=== PATIENT | male | born 1935 | race Hispanic/Latino ===

== ENCOUNTER 2021-09-29 00:30 | Inpatient (IN) | payer OTHER, SELFPAY ==
[2021-09-29 01:32] LABS: #Basophils 0.1 thou/uL (0.0-0.2); #Eosinphils 0.1 thou/uL (0.0-0.7); #Lymphocytes 1.7 thou/uL (1.20-3.40); #Monocytes 0.7 thou/uL (0.11-0.59); #Neutrophils 10.8 thou/uL (1.40-6.50); %Basophils 0.5 % (0.0-1.0); %Eosinophils 0.5 % (0.0-10.0); %Lymphocytes 12.5 % (21.0-51.0); %Monocytes 5.1 % (0.0-10.0); %Neutrophils 81.4 % (42.0-75.0); Mean Corpuscular Hemoglobin 33.8 pg (27.0-31.0); Mean Corpuscular Volume 99.4 fL (78.0-98.0); Mean Platelet Volume 6.3 fL (7.4-10.4); Platelet Count 437 thou/uL (130-400); RBC Distribution Width 11.9 % (11.5-14.5); Red Blood Cell (RBC) Count 2.96 mill/uL (4.70-6.10); White Blood Cell (WBC) Count 13.3 thou/uL (4.8-10.8)
[2021-09-29 01:52] LABS: Acetaminophen Less than 10.0 mcg/mL (10.0-30.0); Alcohol Less than 10 mg/dL (Less than 10); CK (CPK) 44 U/L (30-200); Lipase 90 U/L (8-78); Salicylate Less than 8.0 mg/dL (15.0-30.0)
[2021-09-29 01:55] LABS: ALT (SGPT) 17 U/L (8-55); AST (SGOT) 24 U/L (5-34); Albumin 3.3 g/dL (3.4-4.8); Alkaline Phosphatase 103 U/L (40-110); Anion Gap 18 mmol/L (10-20); BUN (Urea Nitrogen) 21 mg/dL (8.4-25.7); Bilirubin, Total 0.5 mg/dL (0.2-1.2); Calc. Creatinine Clearance 0 mL/min (70-130); Carbon Dioxide 22 mmol/L (23-31); Chloride 97 mmol/L (98-107); Globulin 3.9 g/dL (2.4-3.5); Glucose 363 mg/dL (83-110); Potassium 4.5 mmol/L (3.5-5.1); Protein, Total 7.2 g/dL (5.8-8.1); Sodium 132 mmol/L (136-145)
[2021-09-29 02:13] LABS: INR-International Normal Ratio 1.1; Prothrombin Time 14.7 sec (12.0-14.7)
[2021-09-29 02:14] LABS: PTT 31.2 sec (22.9-36.1)
[2021-09-29] MEDS ORDERED: hydrALAZINE 20 MG/ML VIAL ONE (02:30)
[2021-09-29] MEDS ORDERED: Labetalol HCl 100 MG/20 ML VIAL ONE (03:35)
[2021-09-29] MEDS ORDERED: ceFAZolin (BATCH) 2 GM in Premix Bag 1 BAG IVPB SCH (03:45)
[2021-09-29] MEDS ORDERED: Dextrose 50% Abboject 50 ML SYRINGE SLOW IVP PRN (04:18)
[2021-09-29] MEDS ORDERED: Dextrose 5% in Water 1,000 ML IV PRN (04:18)
[2021-09-29] MEDS ORDERED: hydrALAZINE 20 MG/ML VIAL SLOW IVP PRN ×2 (04:18→12:15)
[2021-09-29] MEDS ORDERED: Promethazine HCl 25 MG/ML VIAL IM PRN (04:18)
[2021-09-29] MEDS ORDERED: Ondansetron PF 4 MG/2 ML Vial IVP PRN (04:18)
[2021-09-29] MEDS ORDERED: Ondansetron ODT 4 MG TAB PO PRN (04:18)
[2021-09-29] MEDS ORDERED: Acetaminophen 325 MG TAB PO PRN (04:18)
[2021-09-29] MEDS: Sodium Chloride 0.9% 1,000 ML IV SCH ×2 (05:14→11:31)
[2021-09-29] MEDS: Morphine 2 MG/ML VIAL SLOW IVP PRN ×4 (05:24→23:04)
[2021-09-29] MEDS ORDERED: Bacitracin Zinc Ointment 30 gm TUBE ONE (06:09)
[2021-09-29] MEDS ORDERED: Lidocaine 0.5%/Epinephrine 1:200,000 50 ml Vial ONE (06:09)
[2021-09-29] MEDS ORDERED: Thrombin 5000 UNITS/5 ML VIAL ONE (06:09)
[2021-09-29] MEDS ORDERED: Neomycin-Polymyxin 1 ML AMP ONE ×3 (06:09→08:59)
[2021-09-29] MEDS ORDERED: Phenylephrine 10 MG/ML VIAL ONE ×2 (06:39→07:13)
[2021-09-29 06:46] LABS: SARS-CoV-2 NAA Rapid Test Not Detected (NotDetected)
[2021-09-29] MEDS ORDERED: Fentanyl 100 MCG/2 ML VIAL ONE (07:11)
[2021-09-29] MEDS: Sodium Chloride 1 GM TAB PO SCH ×3 (08:00→23:13)
[2021-09-29] MEDS ORDERED: Lidocaine 1% PF 5 ML VIAL ONE (08:04)
[2021-09-29] MEDS ORDERED: PROPOFOL 200 MG/20 ML VIAL ONE (08:04)
[2021-09-29] MEDS ORDERED: Glycopyrrolate 0.2 MG/ML 5 ML SYRINGE ONE (08:04)
[2021-09-29] MEDS ORDERED: ePHEDrine 50 MG/ML VIAL ONE (08:04)
[2021-09-29] MEDS ORDERED: PHENYLEPHRINE-NS 100 MCG/ML 10 ML SYRINGE ONE (08:04)
[2021-09-29] MEDS ORDERED: Rocuronium Bromide 10 MG/ML (10ML VIAL) ONE (08:04)
[2021-09-29] MEDS ORDERED: NEOMYCIN-POLYMYXIN-HC EAR SUSP 200 DROP/10 ML BOT ONE (08:58)
[2021-09-29] MEDS ORDERED: Famotidine 20 MG TAB PO SCH (09:00)
[2021-09-29] MEDS: Morphine 4 MG/ML VIAL SLOW IVP PRN (11:19)
[2021-09-29] MEDS: ceFAZolin (BATCH) 2 GM in Premix Bag 1 BAG IVPB SCH ×2 (15:01→22:07)
[2021-09-29] MEDS: HumaLOG 300 UNITS/3 ML VIAL SC PRN (15:26)
[2021-09-29] MEDS ORDERED: hydrALAZINE 20 MG/ML VIAL SLOW IVP SCH (15:30)
[2021-09-29 16:11] LABS: Bilirubin Negative (Negative); Blood, Urine Negative (Negative); Clarity Clear (Clear); Glucose, Urine (Dipstick) Greater than 1000 mg/dL (Negative); Ketone, Urine Negative (Negative); Leukocyte Negative Leu/uL (Negative); Nitrite Negative (Negative); Protein, Urine (Dipstick) 30 mg/dL (Neg-Trace); RBC/HPF 0-3 HPF (0-3); Specific Gravity, Urine 1.019 (1.002-1.036); Squamous Epithelial 0-3 HPF (0-3); Urobilinogen Normal mg/dL (Less than 2)
[2021-09-29 16:13] LABS: Bacteria/HPF 1+ HPF (None Seen)
[2021-09-29 16:17] LABS: Amphetamine Not Detected (NotDetected); Barbiturates Screen Not Detected (NotDetected); Benzodiazepine Screen Not Detected (NotDetected); Cocaine Metabolite Screen Not Detected (NotDetected); Methadone Not Detected (NotDetected); Methamphetamine Detected (NotDetected); Opiate Screen Detected (NotDetected); Oxycodone Screen Not Detected (NotDetected); Phencyclidine (PCP) Not Detected (NotDetected); THC/Cannabinoid Screen Not Detected (NotDetected); Tricyclic Screen Not Detected (NotDetected)
[2021-09-29] MEDS ORDERED: niCARdipine 25 MG in Sodium Chloride 0.9% 250 ML 250 ML IVPB SCH (17:00)
[2021-09-29] MEDS ORDERED: Insulin Glargine 30 UNITS/0.3 ML VIAL SC SCH (21:00)
[2021-09-29] MEDS: hydrALAZINE 20 MG/ML VIAL SLOW IVP PRN (22:53)
[2021-09-30] MEDS: Morphine 2 MG/ML VIAL SLOW IVP PRN ×2 (01:55→06:29)
[2021-09-30 03:33] LABS: #Lymphocytes 1.1 thou/uL (1.20-3.40); #Monocytes 0.6 thou/uL (0.11-0.59); #Neutrophils 11.9 thou/uL (1.40-6.50); %Basophils 0.1 % (0.0-1.0); %Eosinophils 0.2 % (0.0-10.0); %Lymphocytes 7.8 % (21.0-51.0); %Monocytes 4.1 % (0.0-10.0); %Neutrophils 87.8 % (42.0-75.0); Hemoglobin 12.7 g/dL (14.0-18.0); Mean Corpuscular HGB CONC 34.1 g/dL (32.0-36.0); Mean Corpuscular Volume 99.8 fL (78.0-98.0); Mean Platelet Volume 6.5 fL (7.4-10.4); Platelet Count 328 thou/uL (130-400); RBC Distribution Width 12.3 % (11.5-14.5); Red Blood Cell (RBC) Count 3.74 mill/uL (4.70-6.10); White Blood Cell (WBC) Count 13.5 thou/uL (4.8-10.8)
[2021-09-30] MEDS: Morphine 4 MG/ML VIAL SLOW IVP PRN ×3 (03:36→17:45)
[2021-09-30 03:51] LABS: Phosphorus 2.4 mg/dL (2.3-4.7)
[2021-09-30 03:53] LABS: Anion Gap 12 mmol/L (10-20); BUN (Urea Nitrogen) 16 mg/dL (8.4-25.7); Calc. Creatinine Clearance 47 mL/min (70-130); Calcium 8.8 mg/dL (7.8-10.44); Carbon Dioxide 20 mmol/L (23-31); Chloride 110 mmol/L (98-107); Glucose 156 mg/dL (83-110); Potassium 4.1 mmol/L (3.5-5.1); Sodium 138 mmol/L (136-145)
[2021-09-30 05:21] LABS: Magnesium 1.4 mg/dL (1.6-2.6)
[2021-09-30] MEDS: ceFAZolin (BATCH) 2 GM in Premix Bag 1 BAG IVPB SCH ×3 (06:29→21:26)
[2021-09-30] MEDS: hydrALAZINE 20 MG/ML VIAL SLOW IVP PRN (06:39)
[2021-09-30] MEDS ORDERED: Magnesium Sulfate In Water 4 GM in Premix Bag 1 BAG IVPB SCH (07:30)
[2021-09-30] MEDS: Sodium Chloride 1 GM TAB PO SCH ×3 (08:00→22:13)
[2021-09-30] MEDS ORDERED: Insulin Glargine 30 UNITS/0.3 ML VIAL SC SCH (09:00)
[2021-09-30] MEDS: Famotidine 20 MG TAB PO SCH (09:00)
[2021-09-30] MEDS: Sodium Chloride 0.9% 1,000 ML IV SCH (13:00)
[2021-09-30] MEDS ORDERED: Dextrose 50% Abboject 50 ML SYRINGE SLOW IVP PRN (15:02)
[2021-09-30] MEDS: Lorazepam 2 MG/ML VIAL SLOW IVP PRN (19:09)
[2021-10-01] MEDS: Labetalol HCl 100 MG/20 ML VIAL SLOW IVP PRN ×4 (00:12→23:03)
[2021-10-01] MEDS: hydrALAZINE 20 MG/ML VIAL SLOW IVP PRN ×2 (02:09→06:03)
[2021-10-01 03:27] LABS: #Monocytes 0.6 thou/uL (0.11-0.59); #Neutrophils 10.3 thou/uL (1.40-6.50); %Basophils 0.2 % (0.0-1.0); %Eosinophils 0.3 % (0.0-10.0); %Lymphocytes 8.3 % (21.0-51.0); %Monocytes 4.9 % (0.0-10.0); %Neutrophils 86.4 % (42.0-75.0); Hemoglobin 11.9 g/dL (14.0-18.0); Mean Corpuscular HGB CONC 33.8 g/dL (32.0-36.0); Mean Corpuscular Hemoglobin 34.1 pg (27.0-31.0); Mean Platelet Volume 6.2 fL (7.4-10.4); Platelet Count 262 thou/uL (130-400); RBC Distribution Width 12.2 % (11.5-14.5); Red Blood Cell (RBC) Count 3.49 mill/uL (4.70-6.10); White Blood Cell (WBC) Count 11.9 thou/uL (4.8-10.8)
[2021-10-01 03:47] LABS: Anion Gap 11 mmol/L (10-20); BUN (Urea Nitrogen) 17 mg/dL (8.4-25.7); Calc. Creatinine Clearance 53 mL/min (70-130); Calcium 8.5 mg/dL (7.8-10.44); Carbon Dioxide 24 mmol/L (23-31); Chloride 108 mmol/L (98-107); Glucose 145 mg/dL (83-110); Potassium 3.7 mmol/L (3.5-5.1); Sodium 139 mmol/L (136-145)
[2021-10-01] MEDS: ceFAZolin (BATCH) 2 GM in Premix Bag 1 BAG IVPB SCH ×3 (05:34→22:37)
[2021-10-01] MEDS: Sodium Chloride 1 GM TAB PO SCH ×2 (07:08→14:59)
[2021-10-01] MEDS: Sodium Chloride 0.9% 1,000 ML IV SCH (08:39)
[2021-10-01] MEDS: Famotidine 20 MG TAB PO SCH (08:39)
[2021-10-01] MEDS: HumaLOG 300 UNITS/3 ML VIAL SC PRN ×2 (08:40→20:29)
[2021-10-01] MEDS ORDERED: Potassium Phosphate 30 MMOL in Sodium Chloride 0.9% 250 ML 250 ML IVPB SCH (11:45)
[2021-10-01] MEDS: Lorazepam 2 MG/ML VIAL SLOW IVP PRN (14:45)
[2021-10-01] MEDS: Losartan 25 MG TAB PO SCH (20:20)
[2021-10-02] MEDS: Sodium Chloride 1 GM TAB PO SCH ×2 (00:13→08:42)
[2021-10-02] MEDS: HumaLOG 300 UNITS/3 ML VIAL SC PRN ×5 (00:14→20:34)
[2021-10-02] MEDS: Lorazepam 2 MG/ML VIAL SLOW IVP PRN (03:13)
[2021-10-02 03:35] LABS: #Lymphocytes 0.7 thou/uL (1.20-3.40); #Monocytes 0.7 thou/uL (0.11-0.59); #Neutrophils 9.6 thou/uL (1.40-6.50); %Eosinophils 0.3 % (0.0-10.0); %Lymphocytes 6.2 % (21.0-51.0); %Monocytes 6.2 % (0.0-10.0); %Neutrophils 87.3 % (42.0-75.0); Hemoglobin 11.6 g/dL (14.0-18.0); Mean Corpuscular HGB CONC 33.2 g/dL (32.0-36.0); Mean Corpuscular Hemoglobin 33.6 pg (27.0-31.0); Mean Platelet Volume 6.5 fL (7.4-10.4); Platelet Count 249 thou/uL (130-400); RBC Distribution Width 12.2 % (11.5-14.5); Red Blood Cell (RBC) Count 3.45 mill/uL (4.70-6.10)
[2021-10-02 03:57] LABS: Anion Gap 13 mmol/L (10-20); BUN (Urea Nitrogen) 21 mg/dL (8.4-25.7); Calc. Creatinine Clearance 52 mL/min (70-130); Calcium 8.4 mg/dL (7.8-10.44); Carbon Dioxide 23 mmol/L (23-31); Chloride 108 mmol/L (98-107); Glucose 176 mg/dL (83-110); Magnesium 1.7 mg/dL (1.6-2.6); Phosphorus 2.5 mg/dL (2.3-4.7); Potassium 3.6 mmol/L (3.5-5.1); Sodium 140 mmol/L (136-145)
[2021-10-02] MEDS: Labetalol HCl 100 MG/20 ML VIAL SLOW IVP PRN ×4 (05:03→23:07)
[2021-10-02] MEDS: ceFAZolin (BATCH) 2 GM in Premix Bag 1 BAG IVPB SCH ×2 (05:03→14:09)
[2021-10-02] MEDS ORDERED: Acetaminophen/Codeine 30-300mg Tablet PO PRN (07:15)
[2021-10-02] MEDS ORDERED: Acetaminophen 325 MG TAB PO SCH (07:15)
[2021-10-02] MEDS ORDERED: Potassium Phosphate 15 MMOL in Sodium Chloride 0.9% 250 ML 250 ML IVPB SCH (07:15)
[2021-10-02] MEDS ORDERED: Morphine 4 MG/ML VIAL SLOW IVP PRN ×2 (07:15→07:16)
[2021-10-02] MEDS ORDERED: Magnesium 2 GM/50 ML(in water) 2 GM in Premix Bag 1 BAG IVPB SCH (07:15)
[2021-10-02] MEDS: Famotidine 20 MG TAB PO SCH (08:42)
[2021-10-02] MEDS: Polyethylene Glycol 3350 17 GM Packet PER TUBE SCH (08:42)
[2021-10-02] MEDS ORDERED: Bisacodyl 10 MG SUPP PR SCH (09:15)
[2021-10-02] MEDS: Acetaminophen 325 MG TAB PO SCH ×3 (11:43→23:07)
[2021-10-02] MEDS: Morphine 2 MG/ML VIAL SLOW IVP PRN (19:39)
[2021-10-02] MEDS: Losartan 25 MG TAB PO SCH (20:16)
[2021-10-02] MEDS: Tamsulosin HCl 0.4 MG CAP PO SCH (20:16)
[2021-10-03] MEDS: HumaLOG 300 UNITS/3 ML VIAL SC PRN ×3 (00:09→22:33)
[2021-10-03] MEDS: Morphine 2 MG/ML VIAL SLOW IVP PRN ×3 (02:05→08:51)
[2021-10-03] MEDS: Labetalol HCl 100 MG/20 ML VIAL SLOW IVP PRN ×2 (03:04→07:05)
[2021-10-03 03:37] LABS: #Lymphocytes 1.3 thou/uL (1.20-3.40); #Monocytes 0.7 thou/uL (0.11-0.59); #Neutrophils 9.7 thou/uL (1.40-6.50); %Basophils 0.1 % (0.0-1.0); %Eosinophils 0.4 % (0.0-10.0); %Lymphocytes 10.7 % (21.0-51.0); %Monocytes 5.8 % (0.0-10.0); Hemoglobin 11.2 g/dL (14.0-18.0); Mean Corpuscular HGB CONC 33.4 g/dL (32.0-36.0); Mean Corpuscular Hemoglobin 33.9 pg (27.0-31.0); Mean Platelet Volume 6.8 fL (7.4-10.4); Platelet Count 264 thou/uL (130-400); RBC Distribution Width 12.3 % (11.5-14.5); White Blood Cell (WBC) Count 11.7 thou/uL (4.8-10.8)
[2021-10-03 03:52] LABS: Anion Gap 13 mmol/L (10-20); BUN (Urea Nitrogen) 30 mg/dL (8.4-25.7); Calc. Creatinine Clearance 53 mL/min (70-130); Calcium 8.7 mg/dL (7.8-10.44); Carbon Dioxide 26 mmol/L (23-31); Chloride 104 mmol/L (98-107); Glucose 143 mg/dL (83-110); Phosphorus 1.8 mg/dL (2.3-4.7); Potassium 3.5 mmol/L (3.5-5.1); Sodium 139 mmol/L (136-145)
[2021-10-03] MEDS ORDERED: Potassium Phosphate 30 MMOL in Sodium Chloride 0.9% 250 ML 250 ML IVPB SCH (05:00)
[2021-10-03] MEDS: Acetaminophen 325 MG TAB PO SCH ×3 (05:07→18:44)
[2021-10-03] MEDS: Polyethylene Glycol 3350 17 GM Packet PER TUBE SCH ×2 (12:33→15:55)
[2021-10-03] MEDS: Famotidine 20 MG TAB PO SCH ×2 (12:34→15:54)
[2021-10-03] MEDS: hydrALAZINE 20 MG/ML VIAL SLOW IVP PRN (15:55)
[2021-10-03] MEDS: Losartan 25 MG TAB PO SCH (20:41)
[2021-10-03] MEDS: Tamsulosin HCl 0.4 MG CAP PO SCH (20:41)
[2021-10-04] MEDS: Acetaminophen 325 MG TAB PO SCH ×5 (00:15→23:13)
[2021-10-04 04:17] LABS: Anion Gap 13 mmol/L (10-20); BUN (Urea Nitrogen) 27 mg/dL (8.4-25.7); Calc. Creatinine Clearance 50 mL/min (70-130); Calcium 8.5 mg/dL (7.8-10.44); Carbon Dioxide 25 mmol/L (23-31); Chloride 104 mmol/L (98-107); Glucose 178 mg/dL (83-110); Magnesium 1.9 mg/dL (1.6-2.6); Potassium 4.3 mmol/L (3.5-5.1); Sodium 138 mmol/L (136-145)
[2021-10-04] MEDS ORDERED: PHOS-NAK 1 PKT PACK PO SCH (07:15)
[2021-10-04] MEDS: Famotidine 20 MG TAB PO SCH (10:26)
[2021-10-04] MEDS: Senokot S 8.6-50 MG TAB PO SCH ×2 (10:29→22:46)
[2021-10-04] MEDS: Polyethylene Glycol 3350 17 GM Packet PER TUBE SCH (10:31)
[2021-10-04] MEDS: HumaLOG 300 UNITS/3 ML VIAL SC PRN (12:13)
[2021-10-04] MEDS: hydrALAZINE 20 MG/ML VIAL SLOW IVP PRN (22:45)
[2021-10-04] MEDS: Losartan 25 MG TAB PO SCH (22:46)
[2021-10-04] MEDS: Tamsulosin HCl 0.4 MG CAP PO SCH (22:46)
[2021-10-05] MEDS: Acetaminophen 325 MG TAB PO SCH ×4 (05:22→23:52)
[2021-10-05] MEDS: Senokot S 8.6-50 MG TAB PO SCH ×2 (09:31→19:56)
[2021-10-05] MEDS: Polyethylene Glycol 3350 17 GM Packet PER TUBE SCH (09:32)
[2021-10-05] MEDS: Famotidine 20 MG TAB PO SCH (09:32)
[2021-10-05 09:59] VITALS: BMI 18.1
[2021-10-05] MEDS: HumaLOG 300 UNITS/3 ML VIAL SC PRN ×2 (11:16→20:06)
[2021-10-05] MEDS: Losartan 25 MG TAB PO SCH (19:56)
[2021-10-05] MEDS: Tamsulosin HCl 0.4 MG CAP PO SCH (19:56)
[2021-10-06] MEDS: Acetaminophen 325 MG TAB PO SCH ×5 (05:44→23:53)
[2021-10-06] MEDS: HumaLOG 300 UNITS/3 ML VIAL SC PRN ×2 (05:45→11:08)
[2021-10-06] MEDS: Senokot S 8.6-50 MG TAB PO SCH ×2 (09:07→19:49)
[2021-10-06] MEDS: Famotidine 20 MG TAB PO SCH (09:07)
[2021-10-06] MEDS: Polyethylene Glycol 3350 17 GM Packet PER TUBE SCH (09:08)
[2021-10-06] MEDS ORDERED: Labetalol HCl 100 MG/20 ML VIAL ONE (11:07)
[2021-10-06] MEDS ORDERED: Bisacodyl 10 MG SUPP PR SCH (11:45)
[2021-10-06 16:03] LABS: SARS-CoV-2 PCR by NAA Not Detected (NotDetected)
[2021-10-06] MEDS: Losartan 25 MG TAB PO SCH (19:49)
[2021-10-06] MEDS: Tamsulosin HCl 0.4 MG CAP PO SCH (19:50)
[2021-10-06] MEDS: hydrALAZINE 20 MG/ML VIAL SLOW IVP PRN (23:46)
[2021-10-07] MEDS: Acetaminophen 325 MG TAB PO SCH (05:33)
[2021-10-07] MEDS: HumaLOG 300 UNITS/3 ML VIAL SC PRN (05:33)
[2021-10-07] MEDS: Famotidine 20 MG TAB PO SCH (08:52)
[2021-10-07] MEDS: Senokot S 8.6-50 MG TAB PO SCH (08:52)
[2021-10-07] MEDS: Polyethylene Glycol 3350 17 GM Packet PER TUBE SCH (08:53)
[2021-10-07 09:11] VITALS: BP 170/78; TEMP 97.9
== END 2021-10-07 11:05 | disposition home or self-care (01) | DRG 25 ==
LOC: ERS 00:30 → UNDOADMIN 03:40 → CCU 03:40 → SURG B 10-04 14:06
PROVIDERS: ADMIT Surgery; ATTEND Surgery
PROC: 00940ZZ Drainage of Intracranial Subdural Space, Open Approach (ICD-10-PCS; principal; 2021-09-29)
DX: S06.5X0A Traumatic subdural hemorrhage without loss of consciousness, initial encounter (principal); S06.A0XA Traumatic brain compression without herniation, initial encounter; E87.1 Hypo-osmolality and hyponatremia; Z68.1 Body mass index [BMI] 19.9 or less, adult; S06.2X0A Diffuse traumatic brain injury without loss of consciousness, initial encounter; Z20.822 Contact with and (suspected) exposure to COVID-19; E11.9 Type 2 diabetes mellitus without complications; W18.30XA Fall on same level, unspecified, initial encounter; R29.6 Repeated falls; I10 Essential (primary) hypertension; R63.4 Abnormal weight loss; F03.90 Unspecified dementia, unspecified severity, without behavioral disturbance, psychotic disturbance, mood disturbance, and anxiety; Z79.84 Long term (current) use of oral hypoglycemic drugs; Z79.899 Other long term (current) drug therapy; Z90.49 Acquired absence of other specified parts of digestive tract; Z87.891 Personal history of nicotine dependence; E83.42 Hypomagnesemia; E83.39 Other disorders of phosphorus metabolism; E87.6 Hypokalemia
CPT/HCPCS: 36415; 36416; 70450; 71045; 72125; 74018; 74230; 80048; 80053; 80306; 80307; 81001; 82140; 82550; 83605; 83690; 83735; 83880; 84100; 84484; 85025; 85610; 85730; 87040; 87086; 93005; 94760; 96374; 96375; J0360; J0690; J1610; J1642; J1815; J2001; J2060; J2270; J2370; J2704; J3010; J3475; J3490; J7050; J7070; U0002; U0003; U0005

== ENCOUNTER 2021-10-15 20:21 | Inpatient (IN) | payer SELFPAY ==
[2021-10-15] MEDS ORDERED: Succinylcholine 200 MG/10 ml SYRINGE FS ONE (20:25)
[2021-10-15 20:52] LABS: #Lymphocytes 0.6 thou/uL (1.20-3.40); #Monocytes 0.6 thou/uL (0.11-0.59); #Neutrophils 16.2 thou/uL (1.40-6.50); %Basophils 0.1 % (0.0-1.0); %Eosinophils 0.1 % (0.0-10.0); %Lymphocytes 3.2 % (21.0-51.0); %Monocytes 3.5 % (0.0-10.0); %Neutrophils 93.1 % (42.0-75.0); Hemoglobin 11.6 g/dL (14.0-18.0); Mean Corpuscular HGB CONC 30.9 g/dL (32.0-36.0); Mean Platelet Volume 7.5 fL (7.4-10.4); Platelet Count 336 thou/uL (130-400); White Blood Cell (WBC) Count 17.4 thou/uL (4.8-10.8)
[2021-10-15 21:18] LABS: ALT (SGPT) 8 U/L (8-55); AST (SGOT) 14 U/L (5-34); Albumin 2.6 g/dL (3.4-4.8); Alkaline Phosphatase 105 U/L (40-110); Anion Gap 29 mmol/L (10-20); BUN (Urea Nitrogen) 94 mg/dL (8.4-25.7); Calc. Creatinine Clearance 0 mL/min (70-130); Calcium 8.4 mg/dL (7.8-10.44); Carbon Dioxide 18 mmol/L (23-31); Chloride 116 mmol/L (98-107); Potassium 4.7 mmol/L (3.5-5.1); Protein, Total 6.6 g/dL (5.8-8.1); Sodium 158 mmol/L (136-145)
[2021-10-15] MEDS ORDERED: Midazolam HCl 2 mg/2 ml Vial ONE (21:25)
[2021-10-15 21:26] LABS: Glucose 780 mg/dL (83-110)
[2021-10-15 21:34] LABS: CKMB 0.8 ng/mL (0-6.6)
[2021-10-15] MEDS ORDERED: Acetaminophen 650 MG Suppository ONE (21:54)
[2021-10-15] MEDS ORDERED: Vancomycin 1 GM/200 ML BAG ONE (21:54)
[2021-10-15] MEDS ORDERED: cefTRIAXone\\ROCEPHIN 2 GM VIAL ONE (21:54)
[2021-10-15] MEDS ORDERED: levETIRAcetam 500 MG/5 ML VIAL ONE (21:58)
[2021-10-15 22:02] LABS: Bacteria/HPF 4+ HPF (None Seen); Bilirubin Negative (Negative); Blood, Urine 1+ (Negative); Clarity Turbid (Clear); Glucose, Urine (Dipstick) Greater than 1000 mg/dL (Negative); Ketone, Urine Trace mg/dL (Negative); Leukocyte 500 Leu/uL (Negative); Nitrite Negative (Negative); Protein, Urine (Dipstick) 50 mg/dL (Neg-Trace); Specific Gravity, Urine 1.023 (1.002-1.036); Squamous Epithelial None Seen HPF (0-3); Urobilinogen Normal mg/dL (Less than 2); WBC/HPF Greater than 50 HPF (0-3)
[2021-10-15 22:04] LABS: Actual Bicarbonate (HCO3a) 18.8 mEq/L (22-28); Base Excess (BEa) -5.4 mEq/L (-2.0 to +3.0); CO2 Tension 31.8 mmHg (35.0-45.0); O2 Tension (PaO2), arterial 228.4 mmHg (> 60.0); pH, Arterial 7.39 (7.35-7.45)
[2021-10-15 22:05] LABS: Analyzer IN Cardio ER; Calcium, Ionized (arterial) 1.08 mmol/L (1.12-1.30); Carboxyhemoglobin (COHb) 0.2 gm% (0.0-3.0); Hemoglobin (Hb) 10.2 g/dL (14.0-18.0); Potassium - ABG Lab 3.58 mmol/L (3.70-5.30)
[2021-10-15] MEDS ORDERED: Ondansetron ODT 4 MG TAB PO PRN (22:05)
[2021-10-15] MEDS ORDERED: Promethazine HCl 25 MG/ML VIAL IM PRN (22:05)
[2021-10-15 22:08] LABS: Puncture Site LBA
[2021-10-15] MEDS ORDERED: HUMULIN R 100 UNITS in Sodium Chloride 0.9% 100 ML IVPB SCH ×2 (22:15→22:30)
[2021-10-15] MEDS ORDERED: Electrolyte Replacement Protocol 1 EACH IVPB ONE (22:15)
[2021-10-15] MEDS ORDERED: D5 1/2 NS w/20 mEq KCL 1,000 ML IV PRN ×2 (22:22→22:51)
[2021-10-15 22:24] LABS: Magnesium 2.3 mg/dL (1.6-2.6); Phosphorus 4.1 mg/dL (2.3-4.7)
[2021-10-15] MEDS ORDERED: Piperacillin/Tazobactam 3.375 GM in Sodium Chloride 0.9% 100 ML IVPB SCH (22:30)
[2021-10-15] MEDS ORDERED: Sodium Chloride 0.9% 1,000 ML IV SCH (22:30)
[2021-10-15] MEDS ORDERED: Sodium Bicarbonate 150 MEQ in Dextrose 5% in Water 1,000 ML IV SCH (22:30)
[2021-10-15] MEDS ORDERED: Lactated Ringer's 1,000 ML IV SCH (22:45)
[2021-10-15] MEDS ORDERED: Calcium Chloride 1 GM/10 ML Abboject SYRINGE IVP SCH (22:45)
[2021-10-15] MEDS ORDERED: Morphine 2 MG/ML VIAL SLOW IVP PRN (23:00)
[2021-10-15] MEDS ORDERED: 1/2 NS w/KCL 20 mEq 1,000 ML IV SCH (23:00)
[2021-10-15] MEDS ORDERED: DISCONTINUE PREVIOUS NARCOTIC PAIN MEDICATIONS AND BENZODIAZEPINES FS SCH (23:00)
[2021-10-15] MEDS ORDERED: Lorazepam 2 MG/ML VIAL SLOW IVP PRN (23:00)
[2021-10-15] MEDS ORDERED: Propofol 1,000 MG/100 ML VIAL IV PRN (23:00)
[2021-10-15] MEDS ORDERED: Fentanyl BOLUS 250 ML IVPB PRN (23:00)
[2021-10-15] MEDS ORDERED: Propofol BOLUS 1,000 MG/100 ML VIAL IV PRN ×2 (23:00→23:10)
[2021-10-15] MEDS ORDERED: fentaNYL Citrate-0.9 % NaCl/PF 100 ML IV SCH (23:15)
[2021-10-15] MEDS ORDERED: levETIRAcetam in NS 2,000 MG in Premix Bag 1 BAG IVPB SCH (23:45)
[2021-10-16 00:07] LABS: Glucose 681 mg/dL (83-110)
[2021-10-16 00:09] LABS: Phosphorus 3.4 mg/dL (2.3-4.7)
[2021-10-16 00:12] LABS: Anion Gap 22 mmol/L (10-20); BUN (Urea Nitrogen) 93 mg/dL (8.4-25.7); Calc. Creatinine Clearance 12 mL/min (70-130); Calcium 7.6 mg/dL (7.8-10.44); Carbon Dioxide 21 mmol/L (23-31); Chloride 120 mmol/L (98-107); Magnesium 2.2 mg/dL (1.6-2.6); Potassium 4.1 mmol/L (3.5-5.1); Sodium 159 mmol/L (136-145)
[2021-10-16] MEDS ORDERED: levETIRAcetam 500 MG/5 ML VIAL SLOW IVP SCH (00:15)
[2021-10-16 00:16] LABS: Glucose 686 mg/dL (83-110)
[2021-10-16] MEDS ORDERED: D5 1/2 NS w/40 mEq KCL 1,000 ML IV PRN ×3 (00:18→00:23)
[2021-10-16] MEDS ORDERED: Potassium Chloride 40 MEQ in Sodium Chloride 0.45% 1,000 ML IV SCH (00:30)
[2021-10-16 00:35] LABS: SARS-CoV-2 NAA Rapid Test Not Detected (NotDetected)
[2021-10-16 01:22] LABS: Glucose 633 mg/dL (83-110); Lactic Acid 4.3 mmol/L (0.5-2.2)
[2021-10-16] MEDS: Potassium Chloride 40 MEQ in Sodium Chloride 0.45% 1,000 ML IV SCH ×2 (01:30→08:34)
[2021-10-16 02:35] LABS: Potassium 3.8 mmol/L (3.5-5.1)
[2021-10-16 02:37] LABS: Glucose 627 mg/dL (83-110)
[2021-10-16] MEDS ORDERED: Potassium Chloride 20 MEQ in Premix Bag 1 BAG IVPB SCH ×2 (03:00→04:45)
[2021-10-16 03:53] LABS: INR-International Normal Ratio 1.3; Prothrombin Time 16.1 sec (12.0-14.7)
[2021-10-16 03:54] LABS: PTT 33.4 sec (22.9-36.1)
[2021-10-16 04:08] LABS: Anion Gap 20 mmol/L (10-20); BUN (Urea Nitrogen) 82 mg/dL (8.4-25.7); Calc. Creatinine Clearance 14 mL/min (70-130); Calcium 8.5 mg/dL (7.8-10.44); Carbon Dioxide 21 mmol/L (23-31); Chloride 122 mmol/L (98-107); Glucose 412 mg/dL (83-110); Magnesium 2.1 mg/dL (1.6-2.6); Sodium 160 mmol/L (136-145)
[2021-10-16 04:10] LABS: Lactic Acid 7.3 mmol/L (0.5-2.2)
[2021-10-16 04:11] LABS: Phosphorus 2.3 mg/dL (2.3-4.7)
[2021-10-16 04:17] LABS: Band 27 % (5-11); Lymphocytes 9 % (21-51); MDiff Complete? YES; Macrocytosis MODERATE=16-30 cells (100X) (0-5/hpf); Mean Corpuscular HGB CONC 32.6 g/dL (32.0-36.0); Mean Corpuscular Hemoglobin 35.2 pg (27.0-31.0); Mean Platelet Volume 7.4 fL (7.4-10.4); Metamyelocyte 2 % (0-0); Monocytes 1 % (0-10); Myelocyte 1 % (0-0); Neutrophil 60 % (42-75); Platelet Count 243 thou/uL (130-400); Platelet Morphology Comment Appears Adequate; RBC Distribution Width 12.9 % (11.5-14.5); Red Blood Cell (RBC) Count 3.12 mill/uL (4.70-6.10); Toxic Granulation SLIGHT; White Blood Cell (WBC) Count 14.7 thou/uL (4.8-10.8)
[2021-10-16] MEDS ORDERED: Piperacillin/Tazobactam 3.375 GM in Sodium Chloride 0.9% 100 ML IVPB SCH (05:00)
[2021-10-16] MEDS: Piperacillin/Tazobactam 3.375 GM in Sodium Chloride 0.9% 100 ML IVPB SCH ×2 (05:22→16:06)
[2021-10-16] MEDS ORDERED: Dextrose 50% Abboject 50 ML SYRINGE SLOW IVP PRN (06:50)
[2021-10-16] MEDS ORDERED: Dextrose 5% in Water 1,000 ML IV PRN (06:50)
[2021-10-16] MEDS ORDERED: Electrolyte Replacement Protocol 1 EACH FS ONE (07:43)
[2021-10-16] MEDS ORDERED: 1/2 NS w/KCL 20 mEq 1,000 ML IV SCH (07:45)
[2021-10-16 07:50] LABS: Base Excess (BEa) -0.3 mEq/L (-2.0 to +3.0); CO2 Tension 33.1 mmHg (35.0-45.0); Calcium, Ionized (arterial) 1.21 mmol/L (1.12-1.30); Carboxyhemoglobin (COHb) 0.3 gm% (0.0-3.0); Hemoglobin (Hb) 11.2 g/dL (14.0-18.0); O2 Tension (PaO2), arterial 86.3 mmHg (> 60.0); Potassium - ABG Lab 4.68 mmol/L (3.70-5.30); pH, Arterial 7.46 (7.35-7.45)
[2021-10-16 07:51] LABS: ALV-art Gradient 157.525 mmHg (0-20); Puncture Site RRA
[2021-10-16 08:03] LABS: Anion Gap 21 mmol/L (10-20); BUN (Urea Nitrogen) 76 mg/dL (8.4-25.7); Calc. Creatinine Clearance 17 mL/min (70-130); Calcium 8.3 mg/dL (7.8-10.44); Carbon Dioxide 18 mmol/L (23-31); Chloride 124 mmol/L (98-107); Glucose 307 mg/dL (83-110); Magnesium 2.1 mg/dL (1.6-2.6); Potassium 4.3 mmol/L (3.5-5.1); Sodium 159 mmol/L (136-145)
[2021-10-16] MEDS ORDERED: Electrolyte Replacement Protocol FS PRN (08:45)
[2021-10-16] MEDS: Saccharomyces boulardii 250 MG CAP PO SCH (09:05)
[2021-10-16] MEDS: Famotidine/PF 20 mg/2ml Vial SLOW IVP SCH (09:05)
[2021-10-16 11:27] VITALS: BMI 17.9
[2021-10-16] MEDS: HumaLOG 300 UNITS/3 ML VIAL SC PRN ×2 (12:21→16:04)
[2021-10-16 12:30] LABS: Chloride 123 mmol/L (98-107); Potassium 4.1 mmol/L (3.5-5.1)
[2021-10-16 12:31] LABS: Calcium 8.2 mg/dL (7.8-10.44); Glucose 243 mg/dL (83-110); Sodium 157 mmol/L (136-145)
[2021-10-16 12:33] LABS: Anion Gap 16 mmol/L (10-20); Carbon Dioxide 22 mmol/L (23-31)
[2021-10-16 12:35] LABS: Calc. Creatinine Clearance 19 mL/min (70-130)
[2021-10-16 12:36] LABS: BUN (Urea Nitrogen) 76 mg/dL (8.4-25.7)
[2021-10-16] MEDS: 1/2 NS w/KCL 20 mEq 1,000 ML IV SCH ×2 (13:42→19:49)
[2021-10-16] MEDS: levETIRAcetam 500 MG/5 ML VIAL SLOW IVP SCH (16:05)
[2021-10-16 16:17] LABS: Anion Gap 16 mmol/L (10-20); BUN (Urea Nitrogen) 71 mg/dL (8.4-25.7); Calc. Creatinine Clearance 21 mL/min (70-130); Calcium 8.3 mg/dL (7.8-10.44); Carbon Dioxide 22 mmol/L (23-31); Chloride 123 mmol/L (98-107); Glucose 145 mg/dL (83-110); Phosphorus 1.3 mg/dL (2.3-4.7); Potassium 4.5 mmol/L (3.5-5.1); Sodium 156 mmol/L (136-145)
[2021-10-16] MEDS ORDERED: Sodium Phosphate 40 MMOL in Sodium Chloride 0.9% 250 ML 250 ML IVPB SCH (17:00)
[2021-10-16] MEDS ORDERED: Vancomycin 1 GM in Premix Bag 1 BAG IVPB SCH (21:00)
[2021-10-16] MEDS: Tamsulosin HCl 0.4 MG CAP PO SCH (21:25)
[2021-10-17] MEDS: 1/2 NS w/KCL 20 mEq 1,000 ML IV SCH ×3 (01:12→09:08)
[2021-10-17 04:35] LABS: Anion Gap 15 mmol/L (10-20); BUN (Urea Nitrogen) 64 mg/dL (8.4-25.7); Calc. Creatinine Clearance 28 mL/min (70-130); Calcium 7.8 mg/dL (7.8-10.44); Carbon Dioxide 20 mmol/L (23-31); Chloride 127 mmol/L (98-107); Glucose 105 mg/dL (83-110); Magnesium 1.8 mg/dL (1.6-2.6); Phosphorus 3.6 mg/dL (2.3-4.7); Potassium 4.4 mmol/L (3.5-5.1); Sodium 158 mmol/L (136-145)
[2021-10-17] MEDS: levETIRAcetam 500 MG/5 ML VIAL SLOW IVP SCH ×2 (05:41→14:40)
[2021-10-17] MEDS: Piperacillin/Tazobactam 3.375 GM in Sodium Chloride 0.9% 100 ML IVPB SCH (05:41)
[2021-10-17] MEDS ORDERED: VANCOMYCIN IVPB PRN (06:21)
[2021-10-17 06:41] LABS: Band 63 % (5-11); Hemoglobin 9.7 g/dL (14.0-18.0); Hypochromia SLIGHT = 6-15 cells (100X) (0-5/hpf); Lymphocytes 3 % (21-51); MDiff Complete? YES; Macrocytosis SLIGHT = 6-15 cells (100X) (0-5/hpf); Mean Corpuscular Hemoglobin 32.7 pg (27.0-31.0); Mean Platelet Volume 8.2 fL (7.4-10.4); Metamyelocyte 1 % (0-0); Monocytes 1 % (0-10); Neutrophil 32 % (42-75); Nucleated RBC 1 % (0); Platelet Count 123 thou/uL (130-400); Platelet Morphology Comment Appears Adequate; RBC Distribution Width 13.1 % (11.5-14.5); Red Blood Cell (RBC) Count 2.95 mill/uL (4.70-6.10); White Blood Cell (WBC) Count 24.8 thou/uL (4.8-10.8)
[2021-10-17 06:45] LABS: Actual Bicarbonate (HCO3a) 22.5 mEq/L (22-28); Base Excess (BEa) -0.7 mEq/L (-2.0 to +3.0); CO2 Tension 31.2 mmHg (35.0-45.0); Carboxyhemoglobin (COHb) 0.3 gm% (0.0-3.0); Hemoglobin (Hb) 9.4 g/dL (14.0-18.0); O2 Tension (PaO2), arterial 113.8 mmHg (> 60.0); Potassium - ABG Lab 3.43 mmol/L (3.70-5.30); pH, Arterial 7.48 (7.35-7.45)
[2021-10-17] MEDS ORDERED: Magnesium 2 GM/50 ML(in water) 2 GM in Premix Bag 1 BAG IVPB SCH (06:45)
[2021-10-17 06:57] LABS: Puncture Site RRA
[2021-10-17] MEDS ORDERED: Potassium Phosphate 22 MMOL in Sodium Chloride 0.9% 250 ML 250 ML IVPB SCH (08:00)
[2021-10-17] MEDS: Saccharomyces boulardii 250 MG CAP PO SCH (08:35)
[2021-10-17] MEDS: Famotidine/PF 20 mg/2ml Vial SLOW IVP SCH (08:35)
[2021-10-17] MEDS: D5 1/4 NS 1,000 ML IV SCH ×3 (11:22→17:58)
[2021-10-17] MEDS ORDERED: Piperacillin/Tazobactam 3.375 GM in Sodium Chloride 0.9% 100 ML IVPB SCH (13:00)
[2021-10-17] MEDS: cefTRIAXone\\ROCEPHIN 2 GM in Sodium Chloride 0.9% 100 ML IVPB SCH (14:40)
[2021-10-17] MEDS: HumaLOG 300 UNITS/3 ML VIAL SC PRN (16:22)
[2021-10-17] MEDS ORDERED: Vancomycin 1 GM in Premix Bag 1 BAG IVPB SCH (21:00)
[2021-10-17] MEDS: Tamsulosin HCl 0.4 MG CAP PO SCH (21:15)
[2021-10-18] MEDS: HumaLOG 300 UNITS/3 ML VIAL SC PRN ×4 (00:11→13:14)
[2021-10-18] MEDS: levETIRAcetam 500 MG/5 ML VIAL SLOW IVP SCH ×2 (03:28→16:07)
[2021-10-18] MEDS: D5 1/4 NS 1,000 ML IV SCH ×2 (05:51)
[2021-10-18 07:10] LABS: Actual Bicarbonate (HCO3a) 17.9 mEq/L (22-28); Base Excess (BEa) -4.5 mEq/L (-2.0 to +3.0); Calcium, Ionized (arterial) 1.05 mmol/L (1.12-1.30); Carboxyhemoglobin (COHb) 0.3 gm% (0.0-3.0); Hemoglobin (Hb) 9.4 g/dL (14.0-18.0); O2 Tension (PaO2), arterial 96.8 mmHg (> 60.0); Potassium - ABG Lab 2.93 mmol/L (3.70-5.30); pH, Arterial 7.48 (7.35-7.45)
[2021-10-18 07:17] LABS: CO2 Tension 24.4 mmHg (35.0-45.0); Puncture Site LRA
[2021-10-18 07:41] LABS: Anion Gap 12 mmol/L (10-20); BUN (Urea Nitrogen) 37 mg/dL (8.4-25.7); Calc. Creatinine Clearance 46 mL/min (70-130); Calcium 7.4 mg/dL (7.8-10.44); Carbon Dioxide 19 mmol/L (23-31); Chloride 117 mmol/L (98-107); Glucose 259 mg/dL (83-110); Potassium 3.4 mmol/L (3.5-5.1); Sodium 145 mmol/L (136-145)
[2021-10-18 07:58] LABS: Hemoglobin 10.4 g/dL (14.0-18.0); Mean Corpuscular HGB CONC 31.7 g/dL (32.0-36.0); Mean Corpuscular Hemoglobin 34.2 pg (27.0-31.0); Mean Platelet Volume 8.9 fL (7.4-10.4); Platelet Count 88 thou/uL (130-400); RBC Distribution Width 12.5 % (11.5-14.5); Red Blood Cell (RBC) Count 3.03 mill/uL (4.70-6.10); White Blood Cell (WBC) Count 18.1 thou/uL (4.8-10.8)
[2021-10-18 07:59] LABS: Band 35 % (5-11); Lymphocytes 3 % (21-51); MDiff Complete? YES; Neutrophil 62 % (42-75); Platelet Morphology Comment Appears Decreased; Polychromasia SLIGHT = 2-3 cells (100X) (0-2/hpf)
[2021-10-18 08:03] LABS: Phosphorus 1.9 mg/dL (2.3-4.7)
[2021-10-18] MEDS ORDERED: Magnesium 2 GM/50 ML(in water) 2 GM in Premix Bag 1 BAG IVPB SCH (08:30)
[2021-10-18] MEDS: Famotidine/PF 20 mg/2ml Vial SLOW IVP SCH (08:43)
[2021-10-18] MEDS: Saccharomyces boulardii 250 MG CAP PO SCH (08:44)
[2021-10-18] MEDS: D5 NS w/ 40 mEq KCl 1,000 ML IV SCH ×2 (08:48→17:12)
[2021-10-18] MEDS: PHOS-NAK 1 PKT PACK PO SCH ×2 (08:49→13:13)
[2021-10-18] MEDS ORDERED: Potassium Chloride 20 MEQ in Premix Bag 1 BAG IVPB SCH (09:00)
[2021-10-18] MEDS: cefTRIAXone\\ROCEPHIN 2 GM in Sodium Chloride 0.9% 100 ML IVPB SCH (13:13)
[2021-10-18] MEDS: Tamsulosin HCl 0.4 MG CAP PO SCH (20:03)
[2021-10-19] MEDS: HumaLOG 300 UNITS/3 ML VIAL SC PRN ×3 (00:26→08:11)
[2021-10-19] MEDS: D5 NS w/ 40 mEq KCl 1,000 ML IV SCH ×2 (01:04→09:32)
[2021-10-19] MEDS: levETIRAcetam 500 MG/5 ML VIAL SLOW IVP SCH (04:38)
[2021-10-19 05:44] LABS: Anion Gap 7 mmol/L (10-20); BUN (Urea Nitrogen) 26 mg/dL (8.4-25.7); Calc. Creatinine Clearance 57 mL/min (70-130); Calcium 7.1 mg/dL (7.8-10.44); Carbon Dioxide 21 mmol/L (23-31); Chloride 122 mmol/L (98-107); Glucose 263 mg/dL (83-110); Magnesium 2.1 mg/dL (1.6-2.6); Potassium 4.1 mmol/L (3.5-5.1); Sodium 146 mmol/L (136-145)
[2021-10-19 05:44] LABS: Phosphorus 1.6 mg/dL (2.3-4.7)
[2021-10-19 05:51] LABS: Band 25 % (5-11); Hemoglobin 9.3 g/dL (14.0-18.0); Lymphocytes 2 % (21-51); MDiff Complete? YES; Macrocytosis SLIGHT = 6-15 cells (100X) (0-5/hpf); Mean Corpuscular HGB CONC 32.5 g/dL (32.0-36.0); Mean Corpuscular Hemoglobin 34.1 pg (27.0-31.0); Mean Platelet Volume 7.1 fL (7.4-10.4); Monocytes 2 % (0-10); Neutrophil 71 % (42-75); Platelet Count 80 thou/uL (130-400); Platelet Morphology Comment Appears Decreased; Red Blood Cell (RBC) Count 2.74 mill/uL (4.70-6.10); White Blood Cell (WBC) Count 12.4 thou/uL (4.8-10.8)
[2021-10-19] MEDS: PHOS-NAK 1 PKT PACK PO SCH ×2 (07:58→11:49)
[2021-10-19] MEDS: Saccharomyces boulardii 250 MG CAP PO SCH (07:58)
[2021-10-19] MEDS: Famotidine/PF 20 mg/2ml Vial SLOW IVP SCH (07:58)
[2021-10-19 11:14] VITALS: TEMP 98.8
[2021-10-19] MEDS: cefTRIAXone\\ROCEPHIN 2 GM in Sodium Chloride 0.9% 100 ML IVPB SCH (11:49)
[2021-10-19 11:56] VITALS: BP 131/63
[2021-10-19] MEDS ORDERED: Famotidine/PF 20 mg/2ml Vial SLOW IVP SCH (21:00)
== END 2021-10-19 13:08 | disposition hospice, inpatient (51) | DRG 871 ==
LOC: ERS 20:21 → CCU 21:37
PROVIDERS: ADMIT Specialist; ATTEND Family Medicine
PROC: 3E03329 Introduction of Other Anti-infective into Peripheral Vein, Percutaneous Approach (ICD-10-PCS; principal; 2021-10-15)
PROC: 5A1945Z Respiratory Ventilation, 24-96 Consecutive Hours (ICD-10-PCS; 2021-10-15)
PROC: 0BH17EZ Insertion of Endotracheal Airway into Trachea, Via Natural or Artificial Opening (ICD-10-PCS; 2021-10-15)
PROC: 0D9770Z Drainage of Stomach, Pylorus with Drainage Device, Via Natural or Artificial Opening (ICD-10-PCS; 2021-10-15)
DX: A41.51 Sepsis due to Escherichia coli [E. coli] (principal); E11.00 Type 2 diabetes mellitus with hyperosmolarity without nonketotic hyperglycemic-hyperosmolar coma (NKHHC); I62.01 Nontraumatic acute subdural hemorrhage; J96.01 Acute respiratory failure with hypoxia; I62.03 Nontraumatic chronic subdural hemorrhage; G93.41 Metabolic encephalopathy; N39.0 Urinary tract infection, site not specified; N17.9 Acute kidney failure, unspecified; E87.0 Hyperosmolality and hypernatremia; E87.1 Hypo-osmolality and hyponatremia; Z66 Do not resuscitate; Z20.822 Contact with and (suspected) exposure to COVID-19; I10 Essential (primary) hypertension; G93.89 Other specified disorders of brain; A41.01 Sepsis due to Methicillin susceptible Staphylococcus aureus; Z79.84 Long term (current) use of oral hypoglycemic drugs; Z79.899 Other long term (current) drug therapy; Z90.49 Acquired absence of other specified parts of digestive tract; Z87.891 Personal history of nicotine dependence; Z78.1 Physical restraint status; Z51.5 Encounter for palliative care; Z98.890 Other specified postprocedural states
CPT/HCPCS: 31500; 36415; 36416; 36600; 43752; 51702; 70450; 71045; 80048; 80053; 81003; 81015; 82010; 82533; 82553; 82805; 83605; 83735; 84100; 84145; 84146; 84484; 85025; 85610; 85730; 86850; 86900; 86901; 87040; 87077; 87086; 87149; 87186; 93005; 93306; 94002; 94003; 95816; 95819; 95957; 96365; 96375; J0696; J1815; J1953; J2250; J2543; J3370; J3475; J3480; J3490; J7042; J7050; J7120; P9045; S0028; U0002

== ENCOUNTER 2021-10-19 13:21 | Inpatient (IN) | payer OTHER ==
[2021-10-19] MEDS ORDERED: Morphine 4 MG/ML VIAL SLOW IVP PRN (14:12)
[2021-10-19] MEDS ORDERED: Acetaminophen 650 MG Suppository PR PRN (14:15)
[2021-10-19] MEDS ORDERED: Lorazepam 2 MG/ML VIAL SLOW IVP PRN (14:15)
[2021-10-19] MEDS ORDERED: Promethazine HCl 25 MG SUPP PR PRN (14:15)
[2021-10-19] MEDS ORDERED: diphenhydrAMINE 50 MG/ML VIAL IVP PRN (14:15)
[2021-10-19] MEDS ORDERED: Haloperidol Lactate 5 MG/ML VIAL SLOW IVP PRN (14:15)
[2021-10-19] MEDS ORDERED: Scopolamine 1.5 mg/72 hour Patch TOP PRN (14:15)
[2021-10-19] MEDS ORDERED: Ondansetron PF 4 MG/2 ML Vial IVP PRN (14:15)
[2021-10-19] MEDS: Lorazepam 2 MG/ML VIAL SLOW IVP SCH ×3 (15:05→16:15)
[2021-10-19 15:45] VITALS: BP 120/45; TEMP 99.4
[2021-10-19] MEDS ORDERED: levETIRAcetam 500 MG/5 ML VIAL SLOW IVP SCH (16:00)
== END 2021-10-19 17:17 | disposition expired | DRG 951 ==
LOC: CCU 13:21 → UNDOADMIN 13:21 → CCU 13:54 → MSONC 17:09
PROVIDERS: ADMIT Family Medicine; ATTEND Family Medicine
DX: Z51.5 Encounter for palliative care (principal); Z66 Do not resuscitate; A41.9 Sepsis, unspecified organism; I62.00 Nontraumatic subdural hemorrhage, unspecified; R40.20 Unspecified coma; N39.0 Urinary tract infection, site not specified; E11.65 Type 2 diabetes mellitus with hyperglycemia; I10 Essential (primary) hypertension; Z90.49 Acquired absence of other specified parts of digestive tract; Z98.890 Other specified postprocedural states
CPT/HCPCS: J1953; J2060